=== PATIENT | male | born 1980 | race Caucasian/White ===

== ENCOUNTER 2016-10-19 11:45 | Emergency (ER) | payer BC ==
[~2016-10-19] VITALS: Ht 177.8 cm; Wt 101.2 kg
[2016-10-19 12:43] LABS: HEMATOCRIT 48.1 % (38.0-50.0); MCH 28.4 PG (29.0-34.0); MCHC 34.1 G/DL (30.0-36.0); MCV 83.4 FL (86-99); MEAN PLAT.VOLUME 10.5 uM^3 (9.0-12.4); PLATELET COUNT 205 K/uL (156-360); RBC DIS.WIDTH-CV 12.6 % (11.8-14.6); RBC DIS.WIDTH-SD 38.5 % (39-53); RED BLOOD COUNT 5.77 M/uL (4.00-5.50); WHITE BLOOD COUNT 8.4 K/uL (4.1-10.2)
[2016-10-19 12:57] LABS: CHLORIDE 102 mEq/L (99-109); POTASSIUM 4.2 mEq/L (3.7-5.4); SODIUM 139 mEq/L (136-147)
[2016-10-19 12:59] LABS: GLUCOSE 97 mg/dL (70-99)
[2016-10-19 13:00] LABS: ANION GAP 9 MEQ/L (2-14)
[2016-10-19 13:02] LABS: SERUM ETHYL ALCOHOL < 10 mg/dL
[2016-10-19 13:03] LABS: GFR ESTIMATE (CALCULATED) > 59 mL/min/
[2016-10-19 13:04] LABS: UREA NITROGEN (BUN) 12 mg/dL (9-23)
[2016-10-19 15:22] LABS: AMPHETAMINE NEGATIVE (500 ng/mL); BENZODIAZEPINES NEGATIVE (150 ng/mL); COCAINE NEGATIVE (150 ng/mL); METHAMPHETAMINE NEGATIVE (500 ng/mL); OPIATES (MORPHINE) NEGATIVE (100 ng/mL); PHENCYCLIDINE NEGATIVE (25 ng/mL); THC CANNABINOIDS NEGATIVE (50 ng/mL); TRICYCLIC ANTIDEPRESSANTS NEGATIVE (300 ng/mL)
[2016-10-19 15:23] LABS: BARBITURATES NEGATIVE (200 ng/mL); INTERNAL CONTROLS VALID? YES; METHADONE NEGATIVE (200 ng/mL); OXYCODONE NEGATIVE (100 ng/mL); PROPOXYPHENE NEGATIVE (300 ng/mL)
[2016-10-19 16:45] VITALS: BP 159/94
== END 2016-10-19 16:46 | disposition home or self-care (01) ==
LOC: EME 11:45
DX: F33.1 Major depressive disorder, recurrent, moderate (principal); F43.20 Adjustment disorder, unspecified; Z88.0 Allergy status to penicillin
CPT/HCPCS: 80048; 85027; 90839; 99281; 99284; G0480